=== PATIENT | female | born 1945 | race African-American/Black ===

== ENCOUNTER 2021-08-30 05:22 | Day surgery (SDC) | payer OTHER ==
[2021-08-29 13:43] VITALS: BMI 21.7
[2021-08-30] MEDS ORDERED: ROPIVACAINE HCL 0.5% 30ML VIAL ONE (12:23)
[2021-08-30] MEDS ORDERED: MIDAZOLAM HCL 2 MG/2 ML SINGLE DOSE VIAL ONE ×2 (12:24)
[2021-08-30] MEDS ORDERED: HEPARIN NA (PORCINE) 5,000 UNITS/ML 1ML VIAL ONE ×2 (12:32→14:48)
[2021-08-30] MEDS ORDERED: POVIDONE-IODINE OINTMENT 10% - 28.4 GM TUBE ONE (12:33)
[2021-08-30] MEDS ORDERED: LIDOCAINE HCL 1%, 10 MG/ML (20ML VIAL) ONE (12:33)
[2021-08-30] MEDS ORDERED: ceFAZolin SODIUM 1 GM VIAL IVPB ONE ×2 (13:25→14:00)
[2021-08-30] MEDS ORDERED: LIDOCAINE HCL 1%, 10 MG/ML (20ML VIAL) NR ONE ×3 (13:25→15:00)
[2021-08-30] MEDS ORDERED: PROPOFOL 20 ML ONE (13:42)
[2021-08-30] MEDS ORDERED: ceFAZolin SODIUM 1 GM VIAL ONE (14:01)
[2021-08-30 18:23] VITALS: TEMP 97.8
[2021-08-30 19:10] VITALS: BP 123/64; PULSE 66
== END 2021-08-30 19:00 | disposition home or self-care (01) ==
LOC: JASU-SURG 05:22
PROVIDERS: ATTEND Surgery Vascular Surgery
PROC: 031C0ZF Bypass Left Radial Artery to Lower Arm Vein, Open Approach (ICD-10-PCS; principal; 2021-08-30 13:00)
DX: I12.0 Hypertensive chronic kidney disease with stage 5 chronic kidney disease or end stage renal disease (principal); N18.6 End stage renal disease
CPT/HCPCS: 94760; C9803; J1644; U0003; U0005